=== PATIENT | male | born 1980 | race American Indian/Alaskan Native ===

== ENCOUNTER 2023-02-12 19:30 | Emergency (ER) | payer MEDICAID, OTHER ==
[2023-02-12] MEDS ORDERED: Orphenadrine 60 MG/2 ML Inj IM ONE (20:59)
[2023-02-12] MEDS ORDERED: Ketorolac 30 MG/ML SDV IM ONE (20:59)
== END 2023-02-12 21:50 | disposition home or self-care (01) ==
LOC: DL.ED 19:30
DX: M25.551 Pain in right hip (principal); Z72.0 Tobacco use; W19.XXXA Unspecified fall, initial encounter
CPT/HCPCS: 73502; 96372; 99283; J1885; J2360